=== PATIENT | male | born 1975 | race Caucasian/White ===

== ENCOUNTER 2016-11-16 03:03 | Emergency (ER) | payer SELFPAY ==
[~2016-11-16] VITALS: Ht 188 cm; Wt 90.7 kg
[2016-11-16] MEDS ORDERED: QUET400T PO (03:19)
[2016-11-16] MEDS ORDERED: LITH300T3 PO (03:20)
[2016-11-16] MEDS ORDERED: LITHIUM CARBONATE 300 MG TABLET PO ONE (03:30)
[2016-11-16] MEDS ORDERED: QUETIAPINE FUMARATE 25 MG TABLET PO ONE (03:30)
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
[2016-11-16] MEDS ORDERED: QUETIAPINE FUMARATE 200 MG TABLET ONE (03:36)
[2016-11-16] MEDS ORDERED: LITHIUM CARBONATE 300 MG TABLET ONE (03:37)
--- NOTE | 2016-11-16 04:55 | NUR ---
Patient is resting comfortably in bed with eyes closed
--- NOTE | 2016-11-16 05:13 | NUR ---
Attempted to discharge patient, patient too sedated due to medications. Patient arouses easily but will not move or respond to questions.
--- NOTE | 2016-11-16 06:06 | NUR ---
Patient given written and verbal discharge instructions. Patient refuses to leave the bed, security contacted for assistance. Patient verbalizes understanding of instructions. Patient is ambulatory with steady gait. Refuses offer of snf placement. Patient given list of available shelters in surrounding area.
== END 2016-11-16 06:08 | disposition home or self-care (01) ==
LOC: ER 03:16
DX: F31.9 Bipolar disorder, unspecified (principal); F17.200 Nicotine dependence, unspecified, uncomplicated
CPT/HCPCS: A4663